=== PATIENT | male | born 1955 | race African-American/Black ===

== ENCOUNTER 2017-03-10 12:23 | Emergency (ER) | payer OTHER ==
[~2017-03-10 12:23] MED LIST: ALDACTONE25 MG PO; APAP325 MG PO; APRESOLINE PO; ASPIRIN81 M2 PO; ASPIRINEC PO; ATORVASTATIN CA10 MG PO; BACTRIM DS TABL1 TA1 PO; BIAXIN PO; COLACE PO; COMBIVENT U/D3 ML INH; CORDARONE200 M1 PO; COREG PO; COREG3.125 MG PO; COREG6.25 MG PO; DELTASONE20 MG PO; DIABETES; ELIQUIS5 MG PO; ENTRESTO 24 MG1 EACH PO; FLAGYL PO; FLOMAX0.4 M1 PO; FUROSEMIDE40 MG PO; GLIPIZIDE10 MG PO; GLUCOPHAGE500 MG PO; GLUCOTROL PO; GLUCOTROL XL PO; GLUCOTROL10 MG PO; GLUMETZA1000 MG/BO PO; GLYNASE PO; HCTZ PO; HYDRALAZINE HC100 MG PO; HYDRALAZINE HCL25 MG PO; HYDRALAZINE HCL50 MG PO; IMDUR PO; ISORDIL PO; KCL PO; LANOXIN PO; LASIX PO; LASIX20 MG PO; LEVAQUIN PO; LEVAQUIN750 M1 PO; LEVAQUIN750 MG PO; LEXAPRO PO; LIPITOR PO; LISINOPRIL PO; LISINOPRIL-HCTZ1 T14 PO; LISINOPRIL20 MG PO; MEDI-MECLIZINE25 M1 PO; MEDROL4 MG/DOSE- PO; METFORMIN PO; METOPROLOL TAR25 MG PO; NORVASC PO; PREDNISONE PO; PRILOSEC PO; PROBIOTIC250 MG PO; PROTONIX PO; SIMVASTATIN40 MG PO; SYNTHROID25 MCG PO
[2017-03-10 14:07] LABS: URINE SOURCE CLEAN CATCH
[2017-03-10 14:09] LABS: URINE APPEARANCE CLEAR; URINE BILIRUBIN NEG (NEG); URINE BLOOD NEG (NEG); URINE COLOR YELLOW; URINE GLUCOSE 300 MG/DL (NORM); URINE KETONE NEG (NEG); URINE LEUKOCYTE ESTERASE NEG (NEG); URINE NITRATE NEG (NEG); URINE PROTEIN TRACE (NEG); URINE UROBILINOGEN 0.2 MG/DL (NORM)
[2017-03-10 14:17] LABS: MICRO INDICATED? YES
[2017-03-10 14:18] LABS: CULTURE INDICATED? NO; URINE BACTERIA NEG (NEG); URINE SQUAMOUS EPITHELIAL CELL OCCAS /[HPF]
[2017-03-10 14:19] LABS: URINE GRANULAR CAST 0-2 /[HPF]; URINE WHITE BLOOD CELL CAST 0-2 /[HPF]
== END 2017-03-10 15:05 | disposition home or self-care (01) ==
LOC: SED 12:23
PROVIDERS: Emergency Medicine
DX: S39.012A Strain of muscle, fascia and tendon of lower back, initial encounter (principal); R10.9 Unspecified abdominal pain; E11.65 Type 2 diabetes mellitus with hyperglycemia; I10 Essential (primary) hypertension; F17.200 Nicotine dependence, unspecified, uncomplicated; Z88.0 Allergy status to penicillin; Z88.8 Allergy status to other drugs, medicaments and biological substances; Z79.84 Long term (current) use of oral hypoglycemic drugs; Z79.82 Long term (current) use of aspirin; Z79.899 Other long term (current) drug therapy; X58.XXXA Exposure to other specified factors, initial encounter
CPT/HCPCS: 81003; 82947; 96372; 99284; J1885